=== PATIENT | male | born 1975 | race Caucasian/White ===

== ENCOUNTER → 2017-10-27 13:30 | Outpatient (REF) | payer OTHER, SELFPAY ==
[2017-10-27 14:41] LABS: ALT 63 U/L (12-78); AST 28 U/L (15-37); Albumin 4.1 g/dL (3.4-5.0); Alkaline Phosphatase 98 U/L (46-116); Anion Gap 9.3 mmol/L (3-11); BUN 12 mg/dL (7-18); Bilirubin, Total 0.3 mg/dL (0.2-1.0); CO2 28.7 mmol/L (21.0-32.0); CREATININE 0.96 mg/dL (0.70-1.30); Calcium 8.9 mg/dL (8.5-10.1); Chloride 102 mmol/L (98-107); Glucose 105 mg/dL (70-100); Potassium 4.4 mmol/L (3.5-5.1); Sodium 140 mmol/L (136-145); Total Protein 7.7 g/dL (6.4-8.2)
[2017-10-27 14:58] LABS: Cholesterol 231 mg/dL (50-200); HDL Cholesterol 50 mg/dL (40-60); LDL CHOLESTEROL 161 mg/dL (<100); Triglyceride 108 mg/dL (30-150)
== END ==
LOC: NCHCN 13:30
PROVIDERS: PCP Nurse Practitioner; Visit Provider Nurse Practitioner
DX: I10 Essential (primary) hypertension (principal)
CPT/HCPCS: 80053; 80061; 83721

== ENCOUNTER 2019-04-01 18:51 | Outpatient (REF) | payer OTHER, SELFPAY ==
[2019-04-01 19:26] LABS: ALT 42 U/L (16-63); AST 15 U/L (15-37); Alkaline Phosphatase 81 U/L (46-116); Anion Gap 10.3 mmol/L (3-11); BUN 14 mg/dL (7-18); Bilirubin, Total 0.4 mg/dL (0.2-1.0); CO2 28.7 mmol/L (21.0-32.0); CREATININE 0.83 mg/dL (0.70-1.30); Calculated LDL 145 mg/dL (<100); Chloride 101 mmol/L (98-107); Cholesterol 209 mg/dL (<200); Glucose 93 mg/dL (74-106); HDL Cholesterol 48 mg/dL (40-60); Potassium 3.7 mmol/L (3.5-5.1); Sodium 140 mmol/L (136-145); Total Protein 7.2 g/dL (6.4-8.2); Triglyceride 80 mg/dL (<150)
[2019-04-01 19:34] LABS: Hemoglobin A1C 6.1 % (3.8-5.6)
== END 2019-04-01 19:11 ==
LOC: NCHCN 18:51
PROVIDERS: PCP Nurse Practitioner; Visit Provider Nurse Practitioner
DX: I10 Essential (primary) hypertension (principal)
CPT/HCPCS: 80053; 80061; 83036

== ENCOUNTER 2019-08-09 02:31 | Outpatient (CLI) | payer OTHER, SELFPAY ==
--- NOTE | 2019-08-09 11:19 | DI.US_ITS ---
EXAM: US HERNIA CLINICAL HISTORY: LLQ PAIN, R10.9 TECHNIQUE: Ultrasound performed using standard protocol. COMPARISON: No exams were available for comparison FINDINGS: Soft tissue ultrasound was performed to evaluate possible abdominal wall hernia, mid abdomen and left lower quadrant, no discrete hernia identified. If there is a high clinical suspicion of abdominal wall hernia additional evaluation with CT would be recommended. IMPRESSION: DATA REPOSITORY:
== END 2019-08-09 02:51 ==
PROVIDERS: PCP Nurse Practitioner; Visit Provider Nurse Practitioner
DX: R10.32 Left lower quadrant pain (principal)
CPT/HCPCS: 76857

== ENCOUNTER 2019-10-01 09:11 | Emergency (ER) | payer OTHER, SELFPAY ==
[2019-10-01 09:23] VITALS: BP 163/160; PULSE 96; RESP 16; TEMP 36.6; O2SAT 100
--- NOTE | 2019-10-01 09:50 | ED.GENADUL_ITS ---
Discharge Plan Disposition Patient Disposition: HOME Condition: Stable Discharge Details Chief Complaint: GenMedical Clinical Impression: Diverticulitis, Bleeding hemorrhoid, Acute diarrhea Primary Care Provider: Brook Bennett ED Provider: Linette Viveros Home Meds and New Rx's Prescriptions: New amoxicillin-pot clavulanate [Augmentin] 875-125 mg tablet 1 tab PO BID 10 Days Qty: 20 RF: 0 Continued losartan 50 mg tablet 50 mg PO DAILY RF: 0 chlorthalidone 25 mg tablet 12.5 mg PO DAILY RF: 0 ibuprofen 600 mg Tablet 600 mg PO Q6H PRN PRNRF: 0 omeprazole 20 MG capsule,delayed release(DR/EC) 20 mg PO DAILY RF: 0 Discharge Instructions Instructions: Diverticulitis (ED), Hemorrhoids (ED), Acute Diarrhea (ED), Diverticulitis Diet (ED) Additional Instructions: Drink plenty of fluids and get plenty of rest. Take Tylenol as needed and directed for pain. Take the antibiotics until finished. Call urology today to schedule a follow-up appointment for reevaluation in the next 1 to 2 weeks for follow-up on the kidney mass noted on your left kidney on CAT scan today. Call surgery today to schedule a follow-up appointment for reevaluation in the next 1 to 2 weeks for follow-up on your hemorrhoid and consideration of possible excision if does not improve or worsens. Return immediately to the emergency department if you develop any worsening or new concerning symptoms such as fever, vomiting, worsening pain or rectal bleeding. Referrals: Shane Garg MD [ [facility] STAFF PHYSICIAN] - Jaylin Hollis MD [ [facility] STAFF PHYSICIAN] - Discharge Data Discharge Physician: Linette Viveros Medical Decision Making 0952 -- 44-year-old male with history of hypertension and daily alcohol use presents for intermittent left lower quadrant abdominal pain for 3 weeks, painful hemorrhoid for 1 week, and watery brown diarrhea mixed with bright red blood and one episode of black stool for the past 3 days. Patient appears nontoxic. BP hypertensive on arrival, will recheck. He appears in no acute distress. He has tenderness to palpation of the left lower quadrant. Normal exam. He has a near thrombosed hemorrhoid noted on exam with a bloody crust which I suspect is a source of his bleeding. Also consider diverticulitis, colitis, gastroenteritis, alcoholic gastritis. Will place an IV, bolus IV fluids, screening labs, CT abdomen and pelvis. 1100 -- Labs and imaging reviewed. Labs unremarkable. Imaging reviewed and notes mild diverticulitis. There is also a 3.9 cm solid-appearing mass lower pole of left kidney. Patient was informed of CT findings. Patient feels good to go home. He was placed on surgery list for follow-up for near thrombosed hemorrhoid and advised to use sitz baths for home. He was also placed on urology follow-up list for left renal mass. Discussed with radiologist who did not recommend outpatient ultrasound or MRI for further characterization of the renal mass. He was given a dose of Augmentin here as well as prescription for home for his diverticulitis. Usual and customary return precautions given prior to discharge. Medical Records Medical records reviewed: Yes I reviewed the patient's medical records. Imaging Data Radiologic Study: Radiologist's impression: CT ABDOMEN PELVIS W CLINICAL HISTORY: LLQ abd pain, diarrhea. TECHNIQUE: Imaging Protocol: Axial computed tomography images with coronal and sagittal reformatted images were created and reviewed CONTRAST MATERIAL: Intravenous: Omnipaque 350 Contrast volume:100 ml Oral: / no COMPARISON: No exams were available for comparison FINDINGS: ABDOMEN: Lung Bases: Normal where visualized. Liver: Mild fatty infiltration. No measurable mass. Gallbladder and biliary tract: No radiodense calculus or dilation. Pancreas: Normal density, no abnormal calcifications or inflammatory process. Spleen: Normal. Kidneys: Normal size, contour and axis. No radiodense stones or obstructive uropathy. There is a 3.9 centimeter solid appearing mass at the lower pole of the left kidney. A few small cysts are noted bilaterally. There is no hydronephrosis. Adrenal glands: No masses seen. Abdominal Aorta: Abdominal portion non-dilated. Distal calcification. PELVIS: Bladder: Symmetric distention, no gross wall thickening. Bowel: The ascending and transverse colon are decompressed. The appendix appears normal. There is extensive diverticulosis of the descending and sigmoid colon. There is mild stranding in the fat at the junction of the descending and sigmoid colon which could indicate mild diverticulitis. There is no evidence of perforation or abscess. Peritoneal cavity: No ascites, collection or mesenteric inflammatory response. Bones: Degenerative disc changes at L5-S1. Reproductive organs: Within normal limits. Lymph nodes: Unremarkable. Impression: Mild diverticulitis at the junction of the descending and sigmoid colon. 3.9 centimeter solid-appearing mass at the lower pole of the left kidney. HPI General Mode of arrival: ambulatory . Date/Time Provider Initiated Documentation: 10/01/19 09:30 . Limitations to Documentation: no limitations . Information obtained by: patient . HPI Narrative: Patient is a 44-year-old male with a history of hypertension who presents to the ED with a complaint of intermittent left lower quadrant abdominal pain for the past 3 weeks, hemorrhoid x1 week, and diarrhea for the past 3 days. Patient states his abdominal pain is crampy and currently 0/10. He states he saw his PCP for this and was referred for abdominal ultrasound to rule out hernia which she states is negative. He states 1 week ago he noted a hemorrhoid for which he has been treating with Yusuf Marie and states he feels that it has decreased in size. He states his diarrhea has been 3-4 times daily, watery and brown. He states 3 days ago he had an episode of black stool mixed with brown and bright red blood. He states he has not had any black stool since then but states he has had intermittent episodes of bright red bleeding mixed with watery brown stool. He also admits to nausea but denies any fever, chest pain, shortness of breath, urinary symptoms. He states he traveled to [place] 5 days ago and went to a seafood restaurant. He denies any recent antibiotics. Patient also admits to daily alcohol use and frequently eats red meat. He states he used to drink much more alcohol daily but now drinks approximately 2-3 drinks daily. He states he smokes cigars. He denies any history of known family colon cancer and has not had a colonoscopy. Related Data Home Medications Medication Instructions Recorded Confirmed omeprazole 20 mg PO DAILY 05/27/16 10/01/19 amoxicillin-pot clavulanate 1 tab PO BID 10 Days #20 tab 10/01/19 [Augmentin] chlorthalidone 12.5 mg PO DAILY 10/01/19 10/01/19 ibuprofen 600 mg PO Q6H PRN PRN 10/01/19 10/01/19 losartan 50 mg PO DAILY 10/01/19 10/01/19 Previous Rx's Medication Instructions Recorded amoxicillin-pot clavulanate 1 tab PO BID 10 Days #20 tab 10/01/19 [Augmentin] Allergies Allergy/AdvReac Type Severity Reaction Status Date / Time pollen extracts Allergy Mild Other (See Unverified 10/01/19 10:52 Comment) dust Allergy Mild Itching Uncoded 10/01/19 10:52 General Stated Complaint: GenMedical MALACHI: 4 Review of Systems All systems reviewed & are unremarkable except as noted in HPI and below Constitutional Constitutional: Reports as per HPI, Denies chills and Denies fever(s) Eyes Eyes: Denies blurry vision ENT Ears, Nose, Mouth, and Throat: Denies dizziness, Denies sore throat and Denies throat swelling Cardiovascular Cardiovascular: Denies chest pain and Denies dyspnea Respiratory Respiratory: Denies cough and Denies dyspnea Gastrointestinal Gastrointestinal: Reports abdominal pain, Reports hematochezia, Reports diarrhea, Reports nausea and Denies vomiting Genitourinary Genitourinary: Denies hematuria and Denies dysuria Musculoskeletal Musculoskeletal: Denies back pain and Denies numbness Integumentary/Breasts Skin/Breast: Denies lesions and Denies rash Neurologic Neurologic: Denies dizziness, Denies localized weakness and Denies numbness Allergic/Immunologic Allergic/Immunologic: Denies throat swelling [facility] Medical History (Updated 10/01/19 @ 12:18 by Linette Viveros DO) HTN (hypertension) (Chronic) Surgical History (Updated 10/01/19 @ 10:19 by Linette Viveros DO) History of knee surgery (Acute) Social History Smoking/Tobacco Use Status: Current every day Alcohol Intake: current Drug use: Occasionally Do you feel safe in your relationship?: Yes Exam Const General: cooperative, healthy appearing and no acute distress [facility] Head: normal to inspection Face and sinus: normal facial exam Eyes General: appearance normal, both eyes and all related structures EOM: EOM intact bilaterally Neck Neck: normal visual inspection and No submandibular swelling Lymphatic: no lymphadenopathy noted Chest Chest: normal inspection of the chest and no tenderness Resp Effort & Inspection: normal respiratory effort and able to speak in complete sentences Auscultation: clear to auscultation bilaterally Cardio Rate: regular rate Rhythm: regular rhythm GI Inspection: normal to inspection Palpation: soft, not firm, not rigid and tender in the LLQ Auscultation: hypoactive bowel sounds Rectal Exam: visual inspection abnormal hemorrhoids (1x2cm near thrombosed w/ 4x4mm bloody crust noted near base) Male General Exam: Yes normal external exam Scrotum: scrotum normal Testes: no testicular tenderness Skin General skin exam: no rashes or lesions noted Neuro General: patient alert, patient awake and patient oriented x3 Cognition: normal cognition Speech: speech normal Motor: muscle tone normal throughout Sensory Exam: no sensory deficits noted Extrem General: normal to inspection, full ROM, capillary refill normal, no calf tende rness bilaterally and no edema Psych Appearance: grossly normal Mental Status: mental status grossly normal Speech and Movement: speech and movement normal Affect: normal affect Course Vital Signs Vital signs: Vital Signs Temperature 97.9 F 10/01/19 09:23 Pulse 96 H 10/01/19 09:23 Respiratory Rate 16 10/01/19 09:23 Blood Pressure 163/160 H 10/01/19 09:23 Pulse Oximetry 100 10/01/19 09:23 Temperature 97.9 F 10/01/19 09:23 Temperature Source Temporal Artery Scan 10/01/19 09:23 Pulse 96 H 10/01/19 09:23 Respiratory Rate 16 10/01/19 09:23 Blood Pressure 163/160 H 10/01/19 09:23 Blood Pressure Position Sitting 10/01/19 09:23 Pulse Oximetry 100 10/01/19 09:23 Oxygen Delivery Method Room Air 10/01/19 09:23 Oxygen Flow Rate 0 10/01/19 09:23 Pain Level 2 10/01/19 09:23
[2019-10-01] MEDS: Normal Saline 1,000 ML 1000 ML IV (10:46)
[2019-10-01 10:51] LABS: HCT 47.3 % (40.0-50.0); HGB 16.5 g/dL (13.5-17.5); MCV 89.2 fL (80-95); WBC 10.47 10^3/uL (4.4-10.8)
[2019-10-01 10:52] LABS: MCH 31.1 pg (27.0-33.0); MCHC 34.9 % (32.0-36.0); MPV 10.9 fL (8.0-11.0); Platelet Count 324 10^3/uL (130-400); RDW 12.3 % (11.8-14.1)
[2019-10-01 11:03] LABS: ALT 32 U/L (16-63); AST 20 U/L (15-37); Alkaline Phosphatase 89 U/L (46-116); Anion Gap 10.1 mmol/L (3-11); BUN 11 mg/dL (7-18); Bilirubin, Total 0.3 mg/dL (0.2-1.0); CO2 26.9 mmol/L (21.0-32.0); CREATININE 0.93 mg/dL (0.70-1.30); Calcium 9.2 mg/dL (8.5-10.1); Chloride 99 mmol/L (98-107); Glucose 120 mg/dL (74-106); Lipase 135 U/L (73-393); Potassium 3.6 mmol/L (3.5-5.1); Sodium 136 mmol/L (136-145); Total Protein 8.2 g/dL (6.4-8.2)
[2019-10-01 11:22] VITALS: BP 141/94; PULSE 90; RESP 18; TEMP 36.5; O2SAT 96
[2019-10-01] MEDS: Omnipaque 350 MG/ML 100 ML BTL IJ (11:41)
--- NOTE | 2019-10-01 11:43 | DI.CT_ITS ---
EXAM: CT ABDOMEN PELVIS W CLINICAL HISTORY: LLQ abd pain, diarrhea. TECHNIQUE: Imaging Protocol: Axial computed tomography images with coronal and sagittal reformatted images were created and reviewed CONTRAST MATERIAL: Intravenous: Omnipaque 350 Contrast volume:100 ml Oral: / no COMPARISON: No exams were available for comparison FINDINGS: ABDOMEN: Lung Bases: Normal where visualized. Liver: Mild fatty infiltration. No measurable mass. Gallbladder and biliary tract: No radiodense calculus or dilation. Pancreas: Normal density, no abnormal calcifications or inflammatory process. Spleen: Normal. Kidneys: Normal size, contour and axis. No radiodense stones or obstructive uropathy. There is a 3.9 centimeter solid appearing mass at the lower pole of the left kidney. A few small cysts are noted bi laterally. There is no hydronephrosis. Adrenal glands: No masses seen. Abdominal Aorta: Abdominal portion non-dilated. Distal calcification. PELVIS: Bladder: Symmetric distention, no gross wall thickening. Bowel: The ascending and transverse colon are decompressed. The appendix appears normal. There is e xtensive diverticulosis of the descending and sigmoid colon. There is mild stranding in the fat at t he junction of the descending and sigmoid colon which could indicate mild diverticulitis. There is n o evidence of perforation or abscess. Peritoneal cavity: No ascites, collection or mesenteric inflammatory response. Bones: Degenerative disc changes at L5-S1. Reproductive organs: Within normal limits. Lymph nodes: Unremarkable. Impression: Mild diverticulitis at the junction of the descending and sigmoid colon. 3.9 centimeter solid-appearing mass at the lower pole of the left kidney. RADIATION DOSE DELIVERED: Total DLP DATA REPOSITORY: All CT scans at this facility are submitted to the National Radiology Data Registry (NRDR) Dose Index Registry (DIR) with the [employer] (ACR). RADIATION OPTIMIZATION: All CT scans at this facility use at least one of these dose optimization te chniques: automated exposure control; mA and/or kV adjustment per patient size (includes targeted exa ms where dose is matched to clinical indication); or iterative reconstruction.
[2019-10-01] MEDS: Amoxicillin 875/Clav. 125 TAB PO (12:56)
--- NOTE | 2019-10-01 13:03 | NUR.NOTE ---
Nursing Note: FAXED REFERRAL TO SURGERY AND UROLOGY 1304 KW 10/01/2019
== END 2019-10-01 12:57 | disposition home or self-care (01) ==
PROVIDERS: Emergency Provider Physician Assistant; PCP Nurse Practitioner
DX: K57.32 Diverticulitis of large intestine without perforation or abscess without bleeding (principal); R19.7 Diarrhea, unspecified; K64.5 Perianal venous thrombosis; R93.422 Abnormal radiologic findings on diagnostic imaging of left kidney; I10 Essential (primary) hypertension
CPT/HCPCS: 36415; 80053; 83690; 85027; 96360; 99285; 74177; J3490

== ENCOUNTER 2019-10-09 13:10 | Outpatient (REF) | payer OTHER, SELFPAY ==
[2019-10-09 13:47] LABS: Anion Gap 10.6 mmol/L (3-11); BUN 13 mg/dL (7-18); CO2 26.4 mmol/L (21.0-32.0); CREATININE 0.86 mg/dL (0.70-1.30); Calcium 9.4 mg/dL (8.5-10.1); Chloride 100 mmol/L (98-107); Glucose 116 mg/dL (74-106); Potassium 3.8 mmol/L (3.5-5.1); Sodium 137 mmol/L (136-145)
[2019-10-09 13:49] LABS: PTT Activated 25.4 sec (21.0-31.4); Prothrombin Time 9.7 sec (9.3-11.0)
[2019-10-09 13:53] LABS: Abs Immature Grans 0.02 10^3/uL (0.0-0.06); Absolute Basophil Count 0.06 10^3/uL (0.0-0.2); Absolute Eosinophil Count 0.16 10^3/uL (0.0-0.7); Absolute Lymphocyte Count 3.46 10^3/uL (1.2-3.4); Absolute Monocyte Count 0.56 10^3/uL (0.1-0.8); Absolute Neutrophil Count 4.36 10^3/uL (1.2-6.7); Basophils % 0.7; Eosinophils % 1.9; HCT 45.7 % (40.0-50.0); HGB 15.9 g/dL (13.5-17.5); Immature Grans % 0.2; Lymphocytes % 40.1; MCHC 34.8 % (32.0-36.0); MCV 89.1 fL (80-95); MPV 11.5 fL (8.0-11.0); Monocytes % 6.5; Neutrophils % 50.6; Nucleated RBC 0 %; Platelet Count 355 10^3/uL (130-400); RBC 5.13 10^6/uL (4.36-5.78); RDW 12.2 % (11.8-14.1); RDW-SD 40.1 fL; WBC 8.62 10^3/uL (4.4-10.8)
== END 2019-10-09 13:30 ==
LOC: LBN 13:10
PROVIDERS: PCP Nurse Practitioner; Visit Provider Surgery
DX: K57.92 Diverticulitis of intestine, part unspecified, without perforation or abscess without bleeding (principal); K64.9 Unspecified hemorrhoids; R19.7 Diarrhea, unspecified
CPT/HCPCS: 80048; 86141; 85025; 85610; 85730

== ENCOUNTER 2019-10-17 00:59 | Outpatient (CLI) | payer OTHER, SELFPAY ==
--- NOTE | 2019-10-17 | DI.US_ITS ---
EXAM: US RENAL CLINICAL HISTORY: LT LOWER POLE RENAL MASS, ? CYSTIC VS SOLID,N28.889. TECHNIQUE: Alfonso scale, color and spectral Doppler were used. COMPARISON: CT CT ABDOMEN PELVIS W from 10/01/2019 FINDINGS: Renal size in cm: Right: 11.8. Left: 12.2. Echogenicity: Normal. Hydronephrosis: No. Cyst or mass: 3.3 x 3.7 x 3.1 cm solid exophytic mass arising from the inferior pole of the left kidn ey. No definite internal blood flow is seen sonographically. Nephrolithiasis: No. Other findings: None. Bladder:Normal. Ureteral jets: Right: Visualized and unremarkable. Left: Visualized and unremarkable. Prevoid vol:179 cc Postvoid vol:Patient stated did not need to void. Cc Prostate: 20 cc Renal color flow: Symmetric and within normal limits. IMPRESSION: 1. 3.3 x 3.7 x 3.1 cm exophytic solid left renal mass. Primary renal neoplasm such as renal cell car cinoma should be excluded. If further imaging is warranted, an MRI without and with contrast may be obtained. DATA REPOSITORY:
== END 2019-10-17 01:19 ==
PROVIDERS: PCP Nurse Practitioner; Visit Provider Urology
DX: N28.89 Other specified disorders of kidney and ureter (principal)
CPT/HCPCS: 76770

== ENCOUNTER 2020-06-11 00:49 | Outpatient (CLI) | payer OTHER, SELFPAY ==
--- NOTE | 2020-06-11 09:20 | DI.RAD_ITS ---
EXAM: XR CHEST 2V PA LATERAL CLINICAL HISTORY: r/o mets,RENAL CELL CA,C64.9 TECHNIQUE: 2D digital imaging was performed. COMPARISON: No exams were available for comparison FINDINGS: MEDIASTINUM: Normal. HEART: Normal. PULMONARY VASCULATURE: Normal. LUNGS: Clear. PLEURAL SPACE: No pleural effusion or pneumothorax. BONE:Normal. IMPRESSION: No acute pulmonary findings. DATA REPOSITORY: RADIATION DOSE DELIVERED:
[2020-06-11] MEDS: Normal Saline - Diluent 50 ML VIAL IV (10:08)
[2020-06-11] MEDS: Omnipaque 350 MG/ML 100 ML BTL IJ (10:08)
[2020-06-11] MEDS: Normal Saline Flush 10 ML SYR IVP (10:09)
--- NOTE | 2020-06-11 10:10 | DI.CT_ITS ---
EXAM: CT ABDOMEN W CLINICAL HISTORY: r/o recurrENCE,RENAL CELL CA,S/P PARTIAL NEPHRECTOMY,C64.9 TECHNIQUE: Imaging Protocol: Axial computed tomography images with coronal and sagittal reformatted images were created and reviewed CONTRAST MATERIAL: Intravenous: Omnipaque 350 Contrast volume:100 ml Contrast route:IV - Oral: / no COMPARISON: CT CT ABDOMEN PELVIS W from 10/01/2019 FINDINGS: ABDOMEN: Lung Bases: Normal where visualized. Liver: Normal density. No measurable mass. Gallbladder and biliary tract: No radiodense calculus or dilation. Pancreas: Normal density, no abnormal calcifications or inflammatory process. Spleen: Normal. Kidneys: Status post resection of the mass previously seen at the lower pole of the left kidney. No recurrence or new mass. Small bilateral renal cysts are stable.. No radiodense stones or obstructiv e uropathy. Adrenal glands: No masses seen. Abdominal Aorta: Abdominal portion non-dilated. Moderate atherosclerotic changes. Lymph nodes: Within normal limits. Bowel: Normal appendix. Diverticulosis of the descending colon. Bones: Degenerative disc changes at L5-S1. IMPRESSION: Postsurgical defect at the lower pole of the left kidney related to resection of the previously noted mass. No evidence of recurrence or new mass. RADIATION DOSE DELIVERED: 1,062.64mGy.cm Total DLP DATA REPOSITORY: All CT scans at this facility are submitted to the National Radiology Data Registry (NRDR) Dose Index Registry (DIR) with the [employer] (ACR). RADIATION OPTIMIZATION: All CT scans at this facility use at least one of these dose optimization te chniques: automated exposure control; mA and/or kV adjustment per patient size (includes targeted exa ms where dose is matched to clinical indication); or iterative reconstruction.
[2020-06-11 10:14] LABS: ALT 61 U/L (16-63); AST 27 U/L (15-37); Albumin 3.9 g/dL (3.4-5.0); Alkaline Phosphatase 87 U/L (46-116); Anion Gap 6.4 mmol/L (3-11); BUN 18 mg/dL (7-18); Bilirubin, Total 0.5 mg/dL (0.2-1.0); CO2 29.6 mmol/L (21.0-32.0); Calcium 9.2 mg/dL (8.5-10.1); Chloride 101 mmol/L (98-107); Glucose 124 mg/dL (74-106); Potassium 3.6 mmol/L (3.5-5.1); Sodium 137 mmol/L (136-145); Total Protein 7.6 g/dL (6.4-8.2)
== END 2020-06-11 01:09 ==
PROVIDERS: PCP Nurse Practitioner; Visit Provider Urology
DX: Z08 Encounter for follow-up examination after completed treatment for malignant neoplasm (principal); Z90.5 Acquired absence of kidney; Z85.53 Personal history of malignant neoplasm of renal pelvis
CPT/HCPCS: 80053; 71046; 74160; J3490

== ENCOUNTER 2020-07-03 01:59 | Outpatient (CLI) | payer OTHER, SELFPAY ==
[2020-07-03 11:21] LABS: Source Nasal/Nares
[2020-07-03 22:33] LABS: COVID-19 PCR Negative (Negative)
== END 2020-07-03 02:00 | disposition home or self-care (01) ==
LOC: LBO 01:59
PROVIDERS: PCP Nurse Practitioner; Visit Provider Surgery
DX: Z20.822 Contact with and (suspected) exposure to COVID-19 (principal); Z01.818 Encounter for other preprocedural examination
CPT/HCPCS: 87635

== ENCOUNTER 2020-07-06 06:09 | Day surgery (SDC) | payer OTHER, SELFPAY ==
--- NOTE | 2020-07-06 06:27 | W.COLOREPORT ---
Date of service: 07/06/20 Time of Service: 07:28 Colonoscopy Report Date of procedure: 07/06/20 Pre-op diagnosis general: Colon Cancer screening Post-op diagnosis procedure note: other (diverticulosis and polyp) Procedure: Colonoscopy with polypectomy Surgeon: Jaylin Hollis Anesthesia Type: General:No Airway (ASA 2/ Torin Arevalo CRNA) Estimated blood loss (mL): 3 Pathology: other (sigmoid polyp) Complications: None Disposition: same day Indications: The patient is here for Colonoscopy pre-op. He has no family history of colon cancer. He has not had any bowel habit changes. -Discussed colonoscopy bowel prep as well as the procedure. Discussed possible complications of the procedure to include bleeding, pain, perforation, missed small lesion/polyp, sore throat, aspiration and adverse reaction to the medications. Questions were answered to patient?s satisfaction. No guarantees were implied or given. Prep: Miralax/Dulcolax Procedure Start Time: :28 Procedure End Time: :50 Retraction Time: 15 minutes Findings: One sessile polyp Moderate diverticulosis of the descending and sigmoid colon Procedure Description: After informed consent was obtained the patient was taken to the procedure room and placed in a left decubitous position. Monitors were applied and a time out was done. The patients name, date of , procedure, allergies to medications and metal in their body was reviewed. The patient was then sedated. Once sedated and comfortable a rectal exam was done. External exam was normal. Internal exam revealed a normal sphincter tone and no palpable masses. The prostate felt smooth. The scope was then introduced and retro-flexed. No internal hemorrhoids, polyps or masses were identified on retro-flexion. The scope was then advanced to the cecum without difficulty. The ileocecal vlave and appendiceal orifice were identified. The prep was adequate. The scope was then slowly retracted over 15 minutes back into the rectum. Polyps were removed with cold forceps in the sigmoid colon. There was moderate diverticulosis noted of the descending colon and sigmoid colon. The scope was removed and the patient was woken up and taken back to Same day surgery in stable condition. The patient tolerated the procedure well and there were no immediate complications. Follow up: The patient should follow up in 5 years unless they develop changes in bowel habits or other new gastrointestinal complaints.
--- NOTE | 2020-07-06 06:29 | W.PM.DSUDISC ---
Discharge Plan Disposition Patient Disposition: HOME Condition: Good Discharge Details Reason For Visit: Colonoscopy Attending Provider: Jaylin Hollis Primary Care Provider: Brook Bennett Home Meds and New Rx's Prescriptions: Continued losartan 50 mg tablet 50 mg PO DAILY RF: 0 chlorthalidone 25 mg tablet 12.5 mg PO DAILY RF: 0 ibuprofen 600 mg Tablet 600 mg PO Q6H PRN PRNRF: 0 omeprazole 20 MG capsule,delayed release(DR/EC) 20 mg PO DAILY RF: 0 Discontinued polyethylene glycol 3350 17 gram/dose powder 238 g PO ONCE Qty: 238 RF: 0 bisacodyl [Dulcolax (bisacodyl)] 5 mg tablet,delayed release (DR/EC) 5 mg PO ONCE Qty: 4 RF: 0 Discharge Instructions Instructions: Diverticulosis (DC), Colorectal Polyps (DC) Additional Instructions: Findings: 1 polyps Moderate diverticlosis of the descending and sigmoid colon Follow up: 5 years Please call if you develop: fevers >101.5 Nausea or Vomiting Abdominal pain that is not transient Rectal bleeding that is more then a tbsp A hard abdomen and inability to pass gas DAY SURGERY UNIT POST ENDOSCOPY INSTRUCTIONS Instructions for everyone who is given Anesthesia: For your safety, please do the following for the next 24 Hours: a. Do not drive or operate dangerous equipment b. Do not drink alcohol beverages or use any recreational drugs for the first 24 hours or while taking pain medications. The medications in your body may have a reaction that can be dangerous. c. Do not make any important decisions or sign any important papers 1. Generally there are no restrictions on your activity after a day or so has gone by, but you may feel a bit fatigued for a few days. 2. After you arrive home you may have a light meal and return to a normal diet as you can tolerate it without feeling sick to your stomach. 3. After surgery, you may feel pain or discomfort. This should be only transient, but if it persists please contact your doctor. 4. If there are any questions regarding the findings of your procedure, please feel free to contact your doctor. 6. If you are unable to contact your doctor with a problem, contact the hospital at [phone]. 7. Continue all your regular medications unless directed otherwise. I understand the above instructions and have no questions. Signature of Patient or Responsible Adult Escort Date/Time Name of Responsible Adult Escort Signature of Nurse Date/Time Activity:: Activity as Tolerated Diet:: High Fiber diet Discharge Orders Discharge Orders: Discharge Order (Routine); Ordered 07/06/20 Ordered By: Jaylin Hollis
[2020-07-06 06:37] VITALS: BP 150/104; PULSE 83; RESP 16; TEMP 36.5; O2SAT 97
[2020-07-06] MEDS: Lactated Ringers 1,000 ML 80 ML IV (07:00)
--- NOTE | 2020-07-06 07:02 | W.ANESPRE ---
General Info Date of Service Date Performed: 07/06/20 Height: 5 ft 6 in Weight: 94 kg Body Mass Index (BMI): 33.4 Surgical Procedure: Operation Date: 07/06/20 07:35 Proposed Procedures Side Surgeon p Colonoscopy Jaylin Hollis MD Meds Allergies and Home Medications Allergies Allergy/AdvReac Type Severity Reaction Status Date / Time pollen extracts Allergy Mild Other (See Unverified 07/06/20 06:33 Comment) dust Allergy Mild Itching Uncoded 07/06/20 06:33 Home Medication Medication Instructions Recorded omeprazole 20 mg PO DAILY 05/27/16 chlorthalidone 12.5 mg PO DAILY 10/01/19 ibuprofen 600 mg PO Q6H PRN PRN 10/01/19 losartan 50 mg PO DAILY 10/01/19 Current Visit Medications: Current Medications Generic Name Dose Route Start Last Admin Trade Name Freq PRN Reason Stop Dose Admin Hyoscyamine Sulfate 0.125 mg 07/06/20 06:30 Hyoscyamine 0.125 Mg Sl/Oral/Chew SL DIRECTED PRN Ringer's Solution 1,000 mls @ 80 mls/hr 07/06/20 06:00 07/06/20 07:00 IV 08/02/20 23:59 80 mls/hr INFUSION ALFREDO Administration IV Miscellaneous Supplies 1 each 07/06/20 06:00 Iv Access IV 08/02/20 23:59 DIRECTED ALFREDO Ondansetron HCl 4 mg 07/06/20 06:30 Ondansetron 4 Mg/2 Ml Vial IVP Q4H PRN PRN Nausea / Vomiting Sodium Chloride 0 ml 07/06/20 06:00 Normal Saline Flush 10 Ml Syr IV 08/02/20 23:59 PRN PRN Sodium Chloride 0 ml 07/06/20 06:00 Normal Saline 10 Ml Vial IJ 08/02/20 23:59 DIRECTED PRN Sterile Water 0 ml 07/06/20 06:00 Water,Injection,Sterile 10 Ml Vial IJ 08/02/20 23:59 DIRECTED PRN PFSH Active Problems Active Problems: Problem Status Onset Code Urgency of urination 11/11/16 R39.15 Increased urinary frequency 11/11/16 R35.0 Renal cell carcinoma C64.9 Left kidney mass N28.89 Medical History Medical History Acid reflux HTN (hypertension) Left kidney mass Renal cell carcinoma Surgical History Surgical History History of knee surgery L knee History of nephrectomy, left Pt. states Only 20% of kidney was removed. Hx of wisdom tooth extraction Tobacco Smoking/Tobacco Use Status: Former Tobacco Use Alcohol Alcohol Intake: current Alcohol intake frequency: 0-2 drinks per day Alcohol type: hard liquor Substance Use Substance use: Occasionally Substance use type: marijuana Details: alcohol: t-3, few drinks, marijuana: t-7 Vital Signs and Lab Results Vital Signs Most Recent Vital Signs in EMR: Most Recent Vital Signs Temp Pulse Resp BP Pulse Ox 36.5 C 83 16 150/104 H 97 07/06/20 06:37 07/06/20 06:37 07/06/20 06:37 07/06/20 06:37 07/06/20 06:37 Lab Results Blood Type / Crossmatch: No Data to Display Complete Blood Count: White Blood Count 8.62 10^3/uL (4.4-10.8) 10/09/19 10:00 10/09/19 Red Blood Count 5.13 10^6/uL (4.36-5.78) 10/09/19 10:00 10/09/19 Hemoglobin 15.9 g/dL (13.5-17.5) 10/09/19 10:00 10/09/19 Hematocrit 45.7 % (40.0-50.0) 10/09/19 10:00 10/09/19 Platelet Count 355 10^3/uL (130-400) 10/09/19 10:00 10/09/19 Complete Metabolic Panel: Sodium Level 137 mmol/L (136-145) 06/11/20 09:45 06/11/20 Potassium Level 3.6 mmol/L (3.5-5.1) 06/11/20 09:45 06/11/20 Chloride Level 101 mmol/L (98-107) 06/11/20 09:45 06/11/20 Carbon Dioxide Level 29.6 mmol/L (21.0-32.0) 06/11/20 09:45 06/11/20 Blood Urea Nitrogen 18 mg/dL (7-18) 06/11/20 09:45 06/11/20 Creatinine 1.0 mg/dL (0.70-1.30) 06/11/20 09:45 06/11/20 Calcium Level 9.2 mg/dL (8.5-10.1) 06/11/20 09:45 06/11/20 Albumin 3.9 g/dL (3.4-5.0) 06/11/20 09:45 06/11/20 Glucose Level 124 mg/dL (74-106) H 06/11/20 09:45 06/11/20 Hemoglobin A1c 6.1 % (3.8-5.6) H 04/01/19 16:15 04/01/19 Liver Function Panel: Alanine Aminotransferase (ALT/SGPT) 61 U/L (16-63) 06/11/20 09:45 06/11/20 Aspartate Amino Transf (AST/SGOT) 27 U/L (15-37) 06/11/20 09:45 06/11/20 Coagulation Panel: INR International Normalized Ratio 1.0 (0.9-1.1) 10/09/19 10:00 10/09/19 Prothrombin Time 9.7 sec (9.3-11.0) 10/09/19 10:00 10/09/19 Activated Partial Thromboplast Time 25.4 sec (21.0-31.4) 10/09/19 10:00 10/09/19 Cardiac Panel: No Data to Display Arterial Blood Gas: No Data to Display Venous Blood Gas: No Data to Display Pancreas Panel: Lipase 135 U/L (73-393) 10/01/19 09:36 10/01/19 Thyroid Panel: No Data to Display Infectious Disease: Coronavirus (COVID-19)(PCR) Negative (Negative) 07/03/20 11:05 07/03/20 Coronavirus 2019 Source Nasal/nares 07/03/20 11:05 07/03/20 Blood Cultures: No Data to Display Toxicology Panel: No Data to Display Anesthesia Assessment and Plan Anesthesia History Personal History: No History of Anesthesia Complications Family History: Pseudocholinesterase Deficiency Exercise Tolerance Exercise Tolerance: Metabolic Equivalents>4 Pertinent Negatives Pertinent Negatives: No Symptoms of GERD Cardiac & Pulmonary Exam Cardiac Exam: Normal S1/S2 Heart Sounds Pulmonary Exam: Clear Bilateral Breath Sounds Airway Exam Known Difficult Airway: No Mallampati Class: 2 Mouth Opening: Normal (> 3cm) Thyromental Distance: Greater than 3 cm Neck Range of Motion: Full ROM Neck Circumference: Normal Teeth Condition: Normal Dentition ASA Classification ASA Score: ASA 2 ASA Emergency: No NPO Status NPO Status: NPO Clears >2 hours, Solids >8 hours Anesthesia Plan Anesthesia Technique: General Anesthesia Airway Planned: Natural Airway Monitors Used: Standard Monitors
[2020-07-06 07:17] VITALS: BMI 33.4
--- NOTE | 2020-07-06 07:50 | BOWEL_PTH ---
PATIENT: Miguel Garcias LOC: [facility] U#:[id number] AGE/SX: 45/M ROOM: RE07/06/[address]: Jaylin Hollis MD : 1975 BED: DIS: 07/06/2020 SPEC #: [id number] RECD: 07/06/20 12:57 STATUS: NIDA REQ #: [id number] NADER: 07/06/20 07:[address]: Jaylin Hollis DEPT: Surgical Specimen RECD BY: Mandie Cormier ENTERED: 07/06/20 12:58 SP TYPE: Bowel OTHR DR: Brook Bennett Tissues: 1 - BIOPSY BOWEL Procedures: GROSS AND MICRO LEVEL 4 Comments: [id number]
[2020-07-06 07:57] VITALS: BP 135/73; PULSE 74; RESP 16; TEMP 36.3; O2SAT 95
--- NOTE | 2020-07-06 07:58 | W.ANESPOSTOP ---
Postoperative Evaluation Date, Time and Location Date Performed: 07/06/20 Time Performed: 07:58 Patient Location: Day Surgery Unit Vital Signs Most Recent Imported Vital Signs: Most Recent Vital Signs Temp Pulse Resp BP Pulse Ox 36.5 C 83 16 150/104 H 97 07/06/20 06:37 07/06/20 06:37 07/06/20 06:37 07/06/20 06:37 07/06/20 06:37 Most Recent Manually Entered Vital Signs: Adult Blood Pressure: 135/73 Heart Rate: 73 Respirations: 16 Oxygen Saturation (%): 96 Temperature (C): 36.3 C Pain Score (0-10 Scale): 0 Pain Score Most Recent Pain Score: Most Recent Pain Score Pain Level 3 07/06/20 06:37 Assessment Mental Status: Arousable with meaningful communication Airway and Respiratory Function: Patent airway with normal (patient baseline) respiratory exam Cardiovascular Function: Hemodynamically Stable Hydration Status: Adequately Hydrated Nausea & Vomiting: No Nausea or Vomiting Pain: Pt. Denies Any Pain Peripheral Nerve Block: Patient did not receive a nerve block
[2020-07-06 07:59] VITALS: BP 135/73; PULSE 73; RESP 16; TEMPC 36.3; O2SAT 96
[2020-07-06 08:23] VITALS: BP 144/99; PULSE 82; RESP 16; TEMP 36.4; O2SAT 98
== END 2020-07-06 09:00 | disposition home or self-care (01) ==
PROVIDERS: PCP Nurse Practitioner; Visit Provider Surgery
PROC: 0DJD8ZZ Inspection of Lower Intestinal Tract, Via Natural or Artificial Opening Endoscopic (ICD-10-PCS; CPT 45378; principal; 2020-07-06 07:30)
DX: Z12.11 Encounter for screening for malignant neoplasm of colon (principal); K63.5 Polyp of colon; K57.30 Diverticulosis of large intestine without perforation or abscess without bleeding
CPT/HCPCS: 45380; 88305

== ENCOUNTER 2021-02-11 09:29 | Outpatient (REF) | payer OTHER, SELFPAY ==
[2021-02-11 15:27] LABS: Calculated LDL 144 mg/dL (<100); Cholesterol 223 mg/dL (<200); HDL Cholesterol 61 mg/dL (40-60); Triglyceride 90 mg/dL (<150)
[2021-02-11 15:30] LABS: Hemoglobin A1C 5.8 % (<5.7)
== END 2021-02-11 09:30 | disposition home or self-care (01) ==
LOC: NCHCN 09:29
PROVIDERS: PCP Nurse Practitioner; Visit Provider Nurse Practitioner
DX: E78.5 Hyperlipidemia, unspecified (principal); R73.03 Prediabetes
CPT/HCPCS: 80061; 83036

== ENCOUNTER 2021-06-03 02:10 | Outpatient (CLI) | payer OTHER, SELFPAY ==
--- NOTE | 2021-06-03 06:45 | DI.RAD_ITS ---
Exam(s) XR CHEST 2V PA LATERAL EXAM: XR CHEST 2V PA LATERAL CLINICAL HISTORY: r/o mets,RENAL CELL CA,C64.9 TECHNIQUE: 2D digital imaging was performed. COMPARISON: CR XR CHEST 2V PA LATERAL from 06/11/2020 FINDINGS: MEDIASTINUM: Normal. No visible adenopathy. HEART: Normal. PULMONARY VASCULATURE: Normal. LUNGS: Clear. No masses or pulmonary nodules visible. PLEURAL SPACE: No pleural effusion or pneumothorax. BONE:Unremarkable for age. No gross lytic or blastic lesion. IMPRESSION: No acute abnormality. DATA REPOSITORY: RADIATION DOSE DELIVERED:
[2021-06-03 08:30] LABS: ALT 54 U/L (16-63); AST 26 U/L (15-37); Alkaline Phosphatase 85 U/L (46-116); Anion Gap 10.1 mmol/L (3-11); BUN 16 mg/dL (7-18); Bilirubin, Total 0.3 mg/dL (0.2-1.0); CO2 27.9 mmol/L (21.0-32.0); CREATININE 0.9 mg/dL (0.70-1.30); Calcium 8.3 mg/dL (8.5-10.1); Chloride 103 mmol/L (98-107); Glucose 123 mg/dL (74-106); Potassium 3.9 mmol/L (3.5-5.1); Sodium 141 mmol/L (136-145); Total Protein 7.8 g/dL (6.4-8.2)
[2021-06-03] MEDS: Omnipaque 350 MG/ML 100 ML BTL IJ (09:08)
--- NOTE | 2021-06-03 09:15 | DI.CT_ITS ---
Exam(s) CT ABDOMEN WO/W EXAM: CT ABDOMEN WO/W CLINICAL HISTORY: r/o recurrence,RENAL CELL CA,C64.9. TECHNIQUE: Imaging Protocol: Axial computed tomography images with coronal and sagittal reformatted images were created and reviewed. Pre contrast, venous phase and 5 minutes delayed sequences were pe rformed. CONTRAST MATERIAL: Intravenous: Omnipaque 350 Contrast volume:100 ml Contrast route:IV - Oral: no COMPARISON: CT CT ABDOMEN W from 06/11/2020 FINDINGS: ABDOMEN: Lung Bases: Normal where visualized. Liver: Mild fatty infiltration.. No measurable mass. Gallbladder and biliary tract: No radiodense calculus or dilation. Pancreas: Normal density, no abnormal calcifications or inflammatory process. Spleen: Normal. Kidneys: Right: Normal size, contour and axis. No radiodense stones or obstructive uropathy. Two smal l cysts, mid and lower pole. No suspicious masses seen. Left kidney: Suture material and postsurgical defect at the lower pole of the left kidney. No eviden ce of recurrence mass. Stable small cyst superior pole no stones. No hydronephrosis. Adrenal glands: No masses seen. Abdominal Aorta: Abdominal portion non-dilated. Moderate atherosclerotic changes aorta and proximal iliac arteries. Lymph nodes: Within normal limits. Bowel: Stomach and small bowel unremarkable. Diverticulosis of the descending colon. Bones: Degenerative disc changes at L5-S1. IMPRESSION: Postsurgical defect at the lower pole of the left kidney. No recurrent mass. Small bilateral renal cysts, stable. RADIATION DOSE DELIVERED: 1,894.77mGy.cm Total DLP DATA REPOSITORY: All CT scans at this facility are submitted to the National Radiology Data Registry (NRDR) Dose Index Registry (DIR) with the [employer] (ACR). RADIATION OPTIMIZATION: All CT scans at this facility use at least one of these dose optimization te chniques: automated exposure control; mA and/or kV adjustment per patient size (includes targeted exa ms where dose is matched to clinical indication); or iterative reconstruction.
== END 2021-06-03 02:30 ==
PROVIDERS: PCP Nurse Practitioner; Visit Provider Urology
DX: C64.9 Malignant neoplasm of unspecified kidney, except renal pelvis (principal)
CPT/HCPCS: 80053; 71046; 74170; J3490

== ENCOUNTER 2022-02-25 10:02 | Outpatient (REF) | payer OTHER, SELFPAY ==
[2022-02-25 18:38] LABS: ALT 43 U/L (16-63); AST 32 U/L (15-37); Albumin 3.9 g/dL (3.4-5.0); Alkaline Phosphatase 80 U/L (46-116); Anion Gap 7.8 mmol/L (3-11); BUN 16 mg/dL (7-18); Bilirubin, Total 0.6 mg/dL (0.2-1.0); CO2 30.2 mmol/L (21.0-32.0); Calcium 8.9 mg/dL (8.5-10.1); Calculated LDL 90 mg/dL (<100); Chloride 102 mmol/L (98-107); Cholesterol 187 mg/dL (<200); Estimated GFR 92.84 (mL/min/1.73m2); Glucose 128 mg/dL (74-106); HDL Cholesterol 62 mg/dL (40-60); Potassium 4.1 mmol/L (3.5-5.1); Sodium 140 mmol/L (136-145); Total Protein 7.3 g/dL (6.4-8.2); Triglyceride 176 mg/dL (<150)
[2022-02-25 18:53] LABS: Hemoglobin A1C 5.8 % (<5.7)
== END 2022-02-25 10:03 | disposition home or self-care (01) ==
LOC: NCHCN 10:02
PROVIDERS: PCP Nurse Practitioner; Visit Provider Nurse Practitioner Family
DX: I10 Essential (primary) hypertension (principal); E78.5 Hyperlipidemia, unspecified; R73.03 Prediabetes
CPT/HCPCS: 80053; 80061; 83036

== ENCOUNTER 2022-06-10 03:21 | Outpatient (CLI) | payer OTHER, SELFPAY ==
[2022-06-10 15:28] LABS: ALT 67 U/L (16-63); AST 25 U/L (15-37); Albumin 4.2 g/dL (3.4-5.0); Alkaline Phosphatase 80 U/L (46-116); Anion Gap 8.7 mmol/L (3-11); BUN 14 mg/dL (7-18); Bilirubin, Total 0.4 mg/dL (0.2-1.0); CO2 31.3 mmol/L (21.0-32.0); CREATININE 1.1 mg/dL (0.70-1.30); Chloride 98 mmol/L (98-107); Estimated GFR 82.29 (mL/min/1.73m2); Glucose 107 mg/dL (74-106); Potassium 3.5 mmol/L (3.5-5.1); Sodium 138 mmol/L (136-145)
== END 2022-06-10 03:22 | disposition home or self-care (01) ==
LOC: LBO 03:23
PROVIDERS: PCP Nurse Practitioner; Visit Provider Urology
DX: C64.2 Malignant neoplasm of left kidney, except renal pelvis (principal); Z90.5 Acquired absence of kidney; I10 Essential (primary) hypertension
CPT/HCPCS: 36415; 80053

== ENCOUNTER → 2023-06-21 02:36 | Outpatient (CLI) | payer OTHER, SELFPAY ==
--- NOTE | 2023-06-21 07:30 | DI.CT_ITS ---
Exam(s) CT ABDOMEN PELVIS W EXAM: CT ABDOMEN PELVIS W CLINICAL HISTORY: ? recurrence RENAL CA after partial nephrectomy,C64.9 TECHNIQUE: Imaging Protocol: Axial computed tomography images with coronal and sagittal reformatted images were created and reviewed CONTRAST MATERIAL: Intravenous: Omnipaque 350 Contrast volume:structured data in ml Contrast route:I V - Oral: yes COMPARISON: CT CT ABDOMEN WO/W from 06/03/2021 FINDINGS: ABDOMEN: Lung Bases: Normal where visualized. Liver: Large fatty liver, worsening when compared with the prior exam. No measurable mass. Gallbladder and biliary tract: No radiodense calculus or dilation. Pancreas: Normal density, no abnormal calcifications or inflammatory process. Spleen: Normal. Kidneys: Scarring at the lower pole of the left kidney related to resection of of mass. No recurrenc e mass.. No changes small bilateral renal cysts. Tiny nonobstructing stone noted at upper pole the left kidney. No perinephric stranding.. Adrenal glands: No masses seen. Abdominal Aorta: Abdominal portion non-dilated. Atherosclerotic changes. Lymph nodes: Within normal limits. Bowel: No wall thickening or evidence of obstruction. Stomach unremarkable as visualized. Some dive rticulosis noted of the splenic flexure and descending colon. Bones: Unremarkable for age. IMPRESSION: Postsurgical changes at the inferior pole of the left kidney. No evidence of recurrence mass. No ev idence of adenopathy. RADIATION DOSE DELIVERED: Total DLP Total DLP DATA REPOSITORY: All CT scans at this facility are submitted to the National Radiology Data Registry (NRDR) Dose Index Registry (DIR) with the [employer] (ACR). RADIATION OPTIMIZATION: All CT scans at this facility use at least one of these dose optimization te chniques: automated exposure control; mA and/or kV adjustment per patient size (includes targeted exa ms where dose is matched to clinical indication); or iterative reconstruction.
[2023-06-21] MEDS: Barium Sulfate 2% W/V-Berry Smoothie 450 ML BTL PO ×2 (08:14→08:15)
[2023-06-21 08:28] LABS: Hemoglobin A1C 5.6 % (<5.7)
[2023-06-21 08:32] LABS: ALT 60 U/L (16-63); AST 36 U/L (15-37); Albumin 3.7 g/dL (3.4-5.0); Alkaline Phosphatase 92 U/L (46-116); Anion Gap 9.2 mmol/L (3-11); BUN 14 mg/dL (7-18); Bilirubin, Total 0.5 mg/dL (0.2-1.0); CO2 32.8 mmol/L (21.0-32.0); Chloride 96 mmol/L (98-107); Estimated GFR 91.69 (mL/min/1.73m2); Glucose 121 mg/dL (74-106); Potassium 3.3 mmol/L (3.5-5.1); Sodium 138 mmol/L (136-145); Total Protein 7.6 g/dL (6.4-8.2)
[2023-06-21] MEDS: Omnipaque 350 MG/ML 100 ML BTL IJ (10:17)
[2023-06-21] MEDS: Normal Saline - Diluent 50 ML VIAL IJ (10:18)
[2023-06-21 15:26] LABS: Calculated LDL 105 mg/dL (<100); Cholesterol 189 mg/dL (<200); HDL Cholesterol 58 mg/dL (40-60); Triglyceride 133 mg/dL (<150)
== END ==
PROVIDERS: PCP Nurse Practitioner Family; Visit Provider Urology
DX: C64.9 Malignant neoplasm of unspecified kidney, except renal pelvis (principal); Z98.890 Other specified postprocedural states
CPT/HCPCS: 80053; 80061; 74177; 83036; J3490

== ENCOUNTER 2023-08-11 05:12 | Outpatient (CLI) | payer OTHER, SELFPAY ==
[2023-08-11 17:51] LABS: Rheumatoid Factor <8.6 IU/mL (<12.0)
[2023-08-14 09:04] LABS: Cyclic Citrullinated Peptide <2.5 U/mL (<5.0)
[2023-08-14 11:06] LABS: TB Interpretation Negative (Negative)
[2023-08-14 11:19] LABS: Leukemia/Lymphoma by FC (Blood (See below)
[2023-08-14 11:30] LABS: dsDNA Ab, IgG <22.0 IU/mL (<27.0)
[2023-08-14 14:57] LABS: ANA Interpretation Negative (Negative)
[2023-08-14 20:02] LABS: Myeloperoxidase Ab IgG <0.2 U; Proteinase 3 Ab (PR3) <0.2 U
[2023-08-15 16:55] LABS: Blastomyces Ag Result Not Detected; Blastomyces Ag Value Not Detected
== END 2023-08-11 05:13 | disposition home or self-care (01) ==
LOC: LBO 05:12
PROVIDERS: PCP Nurse Practitioner Family; Visit Provider Student in an Organized Health Care Education/Training Program
DX: R91.8 Other nonspecific abnormal finding of lung field (principal)
CPT/HCPCS: 36415; 86200; 87449; 88185; 83516; 86038; 86225; 86431; 86480; 87385; 88184; 88189

== ENCOUNTER 2024-06-07 00:33 | Outpatient (CLI) | payer OTHER, SELFPAY ==
--- NOTE | 2024-06-07 07:15 | DI.CT_ITS ---
Exam(s) CT ABDOMEN PELVIS W EXAM: CT ABDOMEN PELVIS W CLINICAL HISTORY: ? recurrence of renal cell ca,c64.9. TECHNIQUE: Imaging Protocol: Axial computed tomography images with coronal and sagittal reformatted images were created and reviewed CONTRAST MATERIAL: Intravenous: Omnipaque-350 100cc Oral: Yes. Oral contrast was also administered for bowel opacification. COMPARISON: CT CT ABDOMEN PELVIS W from 06/21/2023 FINDINGS: VISUALIZED LUNG BASES: No nodules nor pleural effusions evident. ABDOMEN: There is no ascites. LIVER: Liver is again noted be hypodense implying steatosis. There no discrete focal hepatic lesions evident. No dilated intrahepatic ducts. GALLBLADDER/BILIARY: No obvious gallbladder pathology. CBD is not dilated. PANCREAS: No evidence of pancreatic mass nor dilatation of the pancreatic duct. SPLEEN: Spleen is not enlarged. No obvious intrasplenic lesions. Splenic and portal veins are paten t. ADRENALS: There are no significant adrenal masses. KIDNEYS:Right kidney remains unremarkable with the exception of a small benign unchanged cyst in the medial cortex of the lower pole region.. There is no evidence of recurrent mass at the site of prior s surgery in the inferior pole of the left kidney. There is a small punctate calculus in the inferio r pole calyx of the left kidney noted and another punctate calculus in the superior pole. There is a lso a small cortical cyst in the superior pole of the left kidney unchanged, measuring 1 cm. There i s no hydronephrosis nor hydroureter.. There is no obvious abnormality in the urinary bladder. ABDOMINAL AORTA: Abdominal aorta is calcified but not enlarged. Iliac arteries are also calcified bu t not enlarged. LYMPH NODES:There is no retroperitoneal nor paraaortic adenopathy. ABDOMINAL WALL: No evidence of significant anterior abdominal wall nor inguinal hernia. GI: There is no evidence of bowel obstruction, free air, nor abscess. PELVIS: GI: No evidence of appendicitis.No evidence of sigmoid diverticulitis. LYMPH NODES: There is no intrapelvic nor inguinal adenopathy. REPRODUCTIVE: Prostate normal size. Seminal vesicles unremarkable. URINARY BLADDER: No calculi nor obvious masses evident OSSEOUS: No fractures and no significant osseous lesions. Chronic disc space narrowing L5-S1 level noted. No listhesis IMPRESSION: 1. There is again noted evidence of partial inferior pole left nephrectomy with again no evidence of recurrent mass at this level nor elsewhere in the kidneys. Small nonobstructive calculi again noted in the left kidney. No lymphadenopathy. 2. No abnormality seen in the urinary bladder. RADIATION DOSE DELIVERED: 1,575.6mGy.cm Total DLP DATA REPOSITORY: All CT scans at this facility are submitted to the National Radiology Data Registry (NRDR) Dose Index Registry (DIR) with the [employer] (ACR). RADIATION OPTIMIZATION: All CT scans at this facility use at least one of these dose optimization te chniques: automated exposure control; mA and/or kV adjustment per patient size (includes targeted exa ms where dose is matched to clinical indication); or iterative reconstruction.
[2024-06-07] MEDS: Barium Sulfate 2% W/V-Berry Smoothie 450 ML BTL PO ×2 (08:45→08:46)
[2024-06-07 09:43] LABS: Hemoglobin A1C 5.8 % (<5.7)
[2024-06-07 10:17] LABS: ALT 49 U/L (16-63); AST 31 U/L (15-37); Albumin 3.5 g/dL (3.4-5.0); Alkaline Phosphatase 116 U/L (46-116); Anion Gap 9.3 mmol/L (3-11); BUN 6 mg/dL (7-18); Bilirubin, Total 0.3 mg/dL (0.2-1.0); CO2 32.7 mmol/L (21.0-32.0); CREATININE 0.8 mg/dL (0.70-1.30); Calcium 9.2 mg/dL (8.5-10.1); Chloride 94 mmol/L (98-107); Estimated GFR 107.15 (mL/min/1.73m2); Glucose 100 mg/dL (74-106); Potassium 3.5 mmol/L (3.5-5.1); Sodium 136 mmol/L (136-145); Total Protein 7.4 g/dL (6.4-8.2)
[2024-06-07] MEDS: Normal Saline - Diluent 50 ML VIAL IJ (10:53)
[2024-06-07] MEDS: Omnipaque 350 MG/ML 100 ML BTL IJ (10:56)
== END 2024-06-07 00:53 ==
LOC: DI 00:33
PROVIDERS: PCP Nurse Practitioner Family; Visit Provider Urology
DX: Z00.00 Encounter for general adult medical examination without abnormal findings (principal); C64.2 Malignant neoplasm of left kidney, except renal pelvis; Z90.5 Acquired absence of kidney
CPT/HCPCS: 80053; 74177; 83036; J3490